=== PATIENT | female | born 1980 | race Caucasian/White ===

== ENCOUNTER 2022-05-15 21:41 | Emergency (ER) | payer OTHER, SELFPAY ==
[2022-05-15 21:42] VITALS: BP 212/115; PULSE 94; RESP 16; TEMP 36.6; O2SAT 100; BMI 42.5
--- NOTE | 2022-05-15 22:18 | US_ITS ---
EXAM: US ABDOMEN LIMITED, RIGHT UPPER QUADRANT CLINICAL INDICATION: ruq pain TECHNIQUE: Real-time ultrasound of the right upper quadrant with image documentation. This report was created using [email or web address] report [employer] technology. COMPARISON: None. FINDINGS: LIVER: Liver is normal in size measuring 23.3 cm. Echogenicity is increased consistent with fatty infiltration. No intrahepatic biliary ductal dilation. GALLBLADDER: Shadowing stone in the gallbladder fundus. District Agent reports a positive sonographic Cohn''s sign. Trace gallbladder sludge. No gallbladder wall thickening is demonstrated. COMMON BILE DUCT: Unremarkable as visualized. The proximal common bile duct is within normal limits for the patient''s age. PANCREAS: Demonstrated pancreas is unremarkable. The tail is not seen. RIGHT KIDNEY: Right kidney is normal in size and echogenicity measuring 13.1 x 4.8 x 4.8 cm. Renal cortical thickness is normal. 4.3 x 4.2 cm upper pole simple cyst. 2.1 x 1.6 cm lower pole cyst. No mass, stone, or hydronephrosis. US/Gallbladder IMPRESSION: 1. Cholelithiasis. Positive sonographic Cohn''s sign suspicious for acute cholecystitis. 2. Hepatic steatosis. 3. Right renal cysts. Follow-up is not indicated per ACR guidelines. Electronically Signed: Betsy Anderson MD at 23:43 EDT Reading Location ID and State: [id number] / Tel , Service support ,
--- NOTE | 2022-05-15 22:19 | ED.VIS.GI ---
HPI HPI - GI History of Present Illness Chief Complaint: Abd Pain Narrative Narrative: 42-year-old female presenting with right upper quadrant pain. She states its been having pain intermittently throughout the week. She states it does not really relate to food. She gets pain whether or not she eats. She was seen at urgent care yesterday and given Prilosec, Zofran, famotidine. Patient states this is not helping. Patient states she was told this is either an ulcer or gastritis by urgent care. Patient states that she had Ramen noodles at about 7 PM and about an hour later started having right upper quadrant pain. She has nausea without vomiting. She denies fever, chills. She had some diarrhea but no constipation. She denies urinary or vaginal complaints. PFSH PFSH Home Medications oxycodone-acetaminophen 5 mg-325 mg tablet (Percocet) 1 tab PO Q6H PRN pain 3 days #12 tabs 05/16/22 [Rx Last Taken Unknown] Allergy/AdvReac Type Severity Reaction Status Date / Time Penicillins [PCN] Allergy Anaphylaxis Verified 05/15/22 21:46 azithromycin AdvReac Other Verified 05/15/22 21:46 codeine AdvReac Other Verified 05/15/22 21:46 Social History Smoking Status: Current every day smoker tobacco type: cigarettes ROS ROS ED Constitutional Constitutional ED: Denies chills or fever(s) ENT ENT ED: Denies rhinorrhea Cardiovascular Cardiovascular: Denies chest pain or palpitations Respiratory/Chest Respiratory/Chest: Denies cough or dyspnea Gastrointestinal Gastrointestinal: Reports abdominal pain, diarrhea and nausea Genitourinary Genitourinary ED: Denies dysuria or hematuria Musculoskeletal Musculoskeletal: Denies arthralgias Integumentary Denies abscess or Abrasions Neurologic Neurologic: Denies headache(s) or paresthesias Psychiatric Psychiatric: Denies anxiety or depression Endocrine Endocrinology: Denies polydipsia or polyphagia EXAM Physical Exam Const Vital Signs: 05/15/22 21:42 05/16/22 00:09 05/16/22 00:13 Temperature 97.8 F Temperature Source Temporal Pulse Rate 94 Respiratory Rate 16 Blood Pressure 212/115 H 169/102 H 164/97 H Blood Pressure Mean 147 124 119 Pulse Ox 100 Oxygen Delivery Method Room Air 05/16/22 00:16 Temperature Temperature Source Pulse Rate 82 Respiratory Rate 24 H Blood Pressure 171/94 H Blood Pressure Mean 119 Pulse Ox 97 Oxygen Delivery Method Room Air Positive well nourished General Appearance ED: NAD; Negative for pallor HEENT Reports moist mucous membranes normocephalic Eyes PERRL and EOMs intact bilaterally Resp normal respiratory effort and clear to auscultation bilaterally Auscultation: Negative for rales, rhonchi or wheezes Cardio regular rate and regular rhythm GI Palpation: tender RLQ and Cohn's sign Back/Spine no CVA tenderness Extremity full ROM General Extremety ED: Negative for edema or tenderness General Extremity: Negative for edema Neuro CN's II-XII intact bilaterally, moves all extremities and no sensory deficits noted Sensorium / Orientation: alert and oriented to person Psych mental status grossly normal Skin no wounds General Skin Exam: Negative for jaundice or pallor MDM MDM MDM Narrative Medical decision making narrative: Patient with right upper quadrant pain on exam. She states she ate Ramen noodles before the onset of the pain. Patient does have a gallbladder. IV was established and she was given morphine and Zofran for pain and nausea respectively. Blood work will be obtained as well as right upper quadrant ultrasound. Patient reevaluated at 1051. Labs have been drawn and she was medicated with morphine and Zofran. She feels improved but still has some pain. After her ultrasound she came back and stated that her abdomen was really hurting her. At this point she was given 0.5 mg of Dilaudid. Her blood work today shows a white blood cell count of 8.3, hemoglobin 12.7, hematocrit 39.3, platelets 287. There is no left shift. Creatinine 1.22 with no comparison. GFR of 51 again with no comparison. LFTs are all within normal limits. Serum is negative. Lipase is normal. Patient's gallbladder ultrasound is read as cholelithiasis with concern for acute cholecystitis however there is no abnormal wall thickening or dilatation of any ducts or pericholecystic fluid which would be suggestion of inflammation. I suspect this is likely a symptomatic gallstone. Dr. Peterson was called about this and he will come see the patient at the bedside. He did note that her blood pressure was elevated on arrival. She states she has not had elevated blood pressure in the past. Initial blood pressure 212/115. Repeat blood pressure 169/102. I will trend this. Repeat blood pressure 171/94. Dr. Peterson came to the bedside to evaluate patient and she feels she is tolerable to go home. I do not believe this is acute cholecystitis and neither is Dr. Peterson. She was given referral for follow-up with Dr. Herzog for her high blood pressure. She is to keep a blood pressure diary. She does report that she is never had high blood pressure before. She is given Percocet for home until she can make follow-up with Dr. Peterson on Tuesday. Return precautions discussed. Impression: 1. Cholelithiasis 2. Hypertension Lab Data Attestation: I reviewed the patient's lab results. Labs: Laboratory Results - last 24 hr 05/15/22 05/15/22 05/15/22 22:47 22:47 22:47 WBC 8.3 RBC 4.38 Hgb 12.7 Hct 39.3 MCV 89.7 MCH 29.0 MCHC 32.3 RDW Std Deviation 46.5 H RDW Coeff of Alex 14.3 Plt Count 287 MPV 10.7 Immature Gran % (Auto) 0.200 Neut % (Auto) 59.5 Lymph % (Auto) 22.0 [place] % (Auto) 10.4 H Eos % (Auto) 7.1 H Baso % (Auto) 0.8 Absolute Neuts (auto) 4.9 Absolute Lymphs (auto) 1.82 Nucleated RBC % 0 Differential Comment SCANNED Sodium 143 Potassium 3.9 Chloride 110 H Carbon Dioxide 25.0 Anion Gap 8 BUN 14 Creatinine 1.22 H Estim Creat Clear Calc 59.36 Est GFR (MDRD) Af Amer 62 Est GFR (MDRD) Non-Af 51 L BUN/Creatinine Ratio 11.5 Glucose 101 Calcium 8.9 Total Bilirubin 0.20 AST 17 ALT 28 Alkaline Phosphatase 73 Total Protein 7.1 Albumin 3.3 Globulin 3.8 Albumin/Globulin Ratio 0.9 Lipase 133 Serum , Qual NEGATIVE Radiography Diagnostic Testing: Clinical Impression(s) from Imaging Studies Gallbladder Ultrasound 05/15/22 22:18 IMPRESSION: 1. Cholelithiasis. Positive sonographic Cohn''s sign suspicious for acute cholecystitis. 2. Hepatic steatosis. 3. Right renal cysts. Follow-up is not indicated per ACR guidelines. Electronically Signed: Betsy Anderson MD at 23:43 EDT , Discharge Plan Triage Chief Complaint: Abd Pain ED Provider: Ray Degroot Dx/Rx/DC Orders Instructions: ED Abdominal Pain Gallstone Poss, ED Hypertension, To Be Confirmed Prescriptions: New oxycodone-acetaminophen [Percocet] 5-325 mg tablet 1 tab PO Q6H PRN (Reason: pain) 3 Days Qty: 12 0RF Primary Care Provider: Care Physician,No Primary Referrals: Cristopher Rosales DO [Non-Staff] - Freddie Peterson MD [Med Staff - Active Staff] - As soon as possible Robbie Herzog MD [Med Staff - Active Staff] - As soon as possible Disposition Disposition: Home, Self Care
[2022-05-15] MEDS: Ondansetron 4 MG/2 ML Vial IV (22:45)
[2022-05-15] MEDS: Morphine 4 MG/ML Syringe IV (22:45)
[2022-05-15 23:03] LABS: Absolute Lymphocyte Count 1.82 X10^3/uL (0.83-4.51); Absolute Neutrophil Count 4.9 X10^3/uL (2.0-7.7); Basophil# 0.07 X10^3/uL; Basophil% 0.8 % (0-1); Eosinophil# 0.59 X10^3/uL; Eosinophils% 7.1 % (0-5); Hematocrit 39.3 % (37-47); Hemoglobin 12.7 g/dL (12.0-15.0); Lymphocyte # 1.82 X10^3/ul (0.83-4.51); Mean Corp Hgb Conc 32.3 g/dL (32-36); Mean Corpuscular Volume 89.7 fL (81-99); Mean Platelet Vol. 10.7 fl (6.2-12.0); Monocyte# 0.86 X10^3/uL; Monocyte% 10.4 % (0-10); NRBC Flagged by Analyzer 0 % (0-5); Neutrophil % 59.5 % (47-70); POSITIVE MORPHOLOGY YES; Platelet Count 287 K/mm3 (150-450); RBC Distribution Width CV 14.3 % (11.6-14.6); RBC Distribution Width SD 46.5 fl (35.1-43.9); Red Blood Count 4.38 M/mm3 (4.2-5.4); White Blood Count 8.3 K/mm3 (4.4-11.0)
[2022-05-15 23:16] LABS: Internal QC Validated? YES +Cl - CLEAR BKGD; Pregnancy, Serum, hCG Quali. NEGATIVE Negative
[2022-05-15 23:24] LABS: ALB/GLOB Ratio 0.9 RATIO (0.9-2.4); AST(SGOT) 17 U/L (15-37); Alanine Aminotransfer ALT/SGPT 28 U/L (13-56); Albumin, Serum 3.3 g/dL (3.2-5.0); Alkaline Phosphatase 73 U/L (45-117); Anion Gap 8 (5-15); BUN 14 mg/dL (7-18); BUN/Creat Ratio 11.5 RATIO (10-20); Calcium,Total 8.9 mg/dL (8.5-10.1); Chloride 110 mmol/L (98-107); Creatinine, Serum 1.22 mg/dL (0.55-1.02); EST Glomerular Filtration Rate 51 mL/min (>60); Est Glom Filt Rate - Afr Amer 62 mL/min (>60); Estimated Creatinine Clearance 59.36 ml/min; Globulin 3.8 g/dL (2.2-4.2); Glucose 101 mg/dL (74-106); Lipase 133 U/L (73-393); Potassium 3.9 mmol/L (3.5-5.1); Protein, Total 7.1 g/dL (6.4-8.2); Sodium Level 143 mmol/L (136-145)
[2022-05-15 23:36] LABS: Differential Comment SCANNED; Differential Indicated SCAN CRITERIA MET
[2022-05-16] MEDS: HYDROmorphone 0.5 MG/0.5 ML SYRINGE IV (00:04)
[2022-05-16] MEDS: 0.9% Normal Saline 1,000 ML 999 ML IV (00:05)
[2022-05-16 00:09] VITALS: BP 169/102
[2022-05-16 00:13] VITALS: BP 164/97
[2022-05-16 00:16] VITALS: BP 171/94; PULSE 82; RESP 24; O2SAT 97
--- NOTE | 2022-05-16 01:17 | HP.PCM_ITS ---
HPI - General General Date of Service: 05/16/22 Chief Complaint: Abdominal pain HPI Narrative MERCY VIVAS, is a 42 F who presents to [facility] with complaints of abdominal pain that began 05/11/2022. This pain has remitted and recurred throughout the week. She states that 2 days ago the pain led her to present to an urgent care facility, however, the provider there was unable to distinguish whether this was an ulcer or the gallbladder and therefore prescribed a PPI medication that did not lead to any significant relief. Patient states that her current pain began at approximately 2100 last evening. She states that this followed a dinner with Ramkathya quick and rohinios. She admits that it has been very busy for her at work and she has not made the best dietary choices. Current pain is described as sharp and radiating to her back. She states that the pain medication given by the emergency room has allowed the pain to subside significantly, but she still feels it. Patient's ER work-up is notable for a CBC that shows normal white count and no left shift. Gallbladder ultrasound was remarkable for cholelithiasis and positive sonographic Cohn sign, but gallbladder wall and common bile duct were both within normal limits at 1.5 and 4.5 mm, respectively. Also no pericholecystic fluid was visualized. Patient denies any past medical history and is not currently taking any medication. She admits that she has not had recent following with a primary care provider as her 's insurance has changed several times over the last 1 year. Her only past surgical history is for tonsils and adenoids at the age of 4. PFS Home Medications oxycodone-acetaminophen 5 mg-325 mg tablet (Percocet) 1 tab PO Q6H PRN pain 3 days #12 tabs 05/16/22 [Rx Last Taken Unknown] Allergy/AdvReac Type Severity Reaction Status Date / Time Penicillins [PCN] Allergy Anaphylaxis Verified 05/15/22 21:46 azithromycin AdvReac Other Verified 05/15/22 21:46 codeine AdvReac Other Verified 05/15/22 21:46 Social History Smoking Status: Current every day smoker tobacco type: cigarettes ROS Constitutional Constitutional: Denies anorexia or fever(s) Gastrointestinal Gastrointestinal: Reports abdominal pain and nausea; Denies constipation Musculoskeletal Musculoskeletal: Reports back pain Vital Signs Vital Signs Vital Signs: 05/15/22 21:42 05/16/22 00:09 05/16/22 00:13 Temperature 97.8 F Temperature Source Temporal Pulse Rate 94 Respiratory Rate 16 Blood Pressure 212/115 H 169/102 H 164/97 H Blood Pressure Mean 147 124 119 Pulse Ox 100 Oxygen Delivery Method Room Air 05/16/22 00:16 Temperature Temperature Source Pulse Rate 82 Respiratory Rate 24 H Blood Pressure 171/94 H Blood Pressure Mean 119 Pulse Ox 97 Oxygen Delivery Method Room Air Weight Weight: 280 lb Body Mass Index (BMI) 42.5 Physical Exam Const alert, oriented x3 and well nourished General Appearance: cooperative Resp normal respiratory effort GI GI Narrative: Morbidly obese, nondistended, no scars. No visible herniations. Soft, tender to palpation in the right upper quadrant. Negative Cohn sign Results Lab / Micro Data Result Diagrams: 05/15/22 22:47 05/15/22 22:47 Labs: Laboratory Results - last 24 hr 05/15/22 22:47: WBC 8.3, RBC 4.38, Hgb 12.7, Hct 39.3, MCV 89.7, MCH 29.0, MCHC 32.3, RDW Std Deviation 46.5 H, RDW Coeff of Alex 14.3, Plt Count 287, MPV 10.7, Immature Gran % (Auto) 0.200, Neut % (Auto) 59.5, Lymph % (Auto) 22.0, [place] % (Auto) 10.4 H, Eos % (Auto) 7.1 H, Baso % (Auto) 0.8, Absolute Neuts (auto) 4.9, Absolute Lymphs (auto) 1.82, Nucleated RBC % 0, Differential Comment SCANNED 05/15/22 22:47: Sodium 143, Potassium 3.9, Chloride 110 H, Carbon Dioxide 25.0, Anion Gap 8, BUN 14, Creatinine 1.22 H, Estim Creat Clear Calc 59.36, Est GFR (MDRD) Af Amer 62, Est GFR (MDRD) Non-Af 51 L, BUN/Creatinine Ratio 11.5, Glucose 101, Calcium 8.9, Total Bilirubin 0.20, AST 17, ALT 28, Alkaline Phosphatase 73, Total Protein 7.1, Albumin 3.3, Globulin 3.8, Albumin/Globulin Ratio 0.9, Lipase 133 05/15/22 22:47: Serum , Qual NEGATIVE Radiology Impression Gallbladder Ultrasound 05/15/22 22:18 IMPRESSION: 1. Cholelithiasis. Positive sonographic Cohn''s sign suspicious for acute cholecystitis. 2. Hepatic steatosis. 3. Right renal cysts. Follow-up is not indicated per ACR guidelines. Electronically Signed: Betsy Anderson MD at 23:43 EDT Reading Location ID and State: [id number] / Tel , Service support , Assessment & Plan Assessment/Plan (1) Symptomatic cholelithiasis: PLAN: This is a 42-year-old female who presents with signs and symptoms of biliary colic and symptomatic cholelithiasis. Each account of her abdominal pain this past week she reports ingestion of fried/fatty meals. Her pain is classically described as beginning in the right upper quadrant and radiating to the back. Both CBC and CMP are within normal limits. I have shared with patient that her diagnosis does not warrant inpatient admission or emergent op eration, but would recommend considering cholecystectomy in the near future to minimize her risk for requiring further ER visits and missed work. She states that she was hopeful this could be done as soon as possible as she is planning on going on vacation in 1 week for 7 days to [facility]. She reports this is her first vacation all year as she has been very busy working as a banker. I have offered to her that we can plan for outpatient follow-up on Tuesday and hopefully will be able to schedule her for a procedure later this week. She is readily accepting of this offer. In the meantime I have suggested to her that she remain on a restricted/low-fat diet to prevent recurrences of her abdominal discomfort. I have also suggested that she establish following with a primary care provider given observations of systolic blood pressures ranging from the 170s to 200s millimeters mercury. Emergency medicine will provide an interval narcotic prescription for pain management and a recommendation for PCP. Charges/Coding Visit Charges Office Visits / Consults: 17915 ED Visit; Moderate Severity
[2022-05-16] MEDS: oxyCODONE 5 MG Tablet PO (01:24)
[2022-05-16 01:25] VITALS: BP 173/73
== END 2022-05-16 01:29 | disposition home or self-care (01) ==
PROVIDERS: Emergency Provider Student in an Organized Health Care Education/Training Program; Visit Provider Student in an Organized Health Care Education/Training Program
DX: K80.20 Calculus of gallbladder without cholecystitis without obstruction (principal); I10 Essential (primary) hypertension; F17.210 Nicotine dependence, cigarettes, uncomplicated
CPT/HCPCS: 76705; 80053; 83690; 84703; 85025; 96374; 96375; 99284; J7030; A4216; J2405

== ENCOUNTER 2022-05-17 12:02 | Day surgery (SDC) | payer OTHER, SELFPAY ==
[2022-05-17] VITALS (8 sets, daily range): BP systolic 125–151; BP diastolic 83–94; PULSE 86–96; RESP 14–16; TEMP 36.2–37.1; O2SAT 91–99; BMI 42.5
[2022-05-17 12:48] LABS: Internal QC Validated? YES +Cl - CLEAR BKGD; Pregnancy, Urine Negative Negative
[2022-05-17] MEDS: Lactated Ringers 1,000 ML 15 ML IV (13:38)
[2022-05-17] MEDS: Clindamycin 900 MG/50 ML BAG 75 MG IV (15:00)
--- NOTE | 2022-05-17 15:00 | GALL_PTH ---
PATIENT: MERCY VIVAS LOC: [facility] [place] U[place][id number] AGE/SX: 42/F ROOM: RE05/17/[address]: Dr. Freddie Peterson MD : 1980 BED: DIS: 05/17/2022 SPEC #: [id number] RECD: 05/18/22 11:52 STATUS: SHYAM MINOR #: [id number] FARRUKH: 05/17/22 15:[address]: Freddie Peterson DEPT: SURGICAL PATHOLOGY RECD BY: Karena Chambers ENTERED: 05/18/22 12:30 SP TYPE: ROSENDO VEGA DR: Dr. Robbie Herzog MD Tissues: Gallbladder, NOS Procedures: Surgery Specimen Level III HEADER OPERATION: Laparoscopic cholecystectomy with IOC PRE-OP DIAGNOSIS: Symptomatic cholelithiasis TISSUE SUBMITTED: Gallbladder MICROSCOPIC DIAGNOSIS Gallbladder, cholecystectomy: Chronic cholecystitis and cholelithiasis. See comment. BRITTANY:ruben 05/19/2022 COMMENT Inflammatory infiltrate shows marked increased number of eosinophils. MICROSCOPIC DESCRIPTION Slides are reviewed. GROSS DESCRIPTION Received is one container labeled with the patient's name and designated gallbladder. The specimen consists of a gallbladder measuring 8.5 cm in length and up to 2.5 cm in diameter. The external surface is pink-aguilar, smooth and glistening for the most part. Focally it is granular, hemorrhagic and contains cautery artifact. The gallbladder contains a small amount of turbid, yellow bile and two ovoid, greenish-brown stones measuring 1 and 2 cm in greatest dimension. One of the stones is impacted at the cystic duct. The mucosa is bile-stained and without any mass lesions. The gallbladder wall measures up to 0.5 cm in thickness. Rental Sales Representative sections from the gallbladder and the cystic duct are submitted in one cassette. / SJ:rg 05/18/2022 TC:3 CPT: 76780
--- NOTE | 2022-05-17 16:04 | RAD_ITS ---
STUDY: INTRAOPERATIVE CHOLANGIOGRAM. REASON FOR EXAM: Female, 42 years old. LAP MY FLUOROSCOPY TIME (if supplied): ( 6.3 seconds ) minutes/seconds. A cine loop of 59 images were submitted. TECHNIQUE: Intraoperative cholangiogram was performed by the surgeon. Imaging was submitted. COMPARISON: None. FINDINGS: The common bile duct is unremarkable. No intraluminal filling defect is seen. There is free flow of contrast into the duodenum. RAD/Cholangiogram/ O R,Initial IMPRESSION: Unremarkable intraoperative cholangiogram. Electronically Signed: Hayden Schwartz MD at 10:10 EDT ,
--- NOTE | 2022-05-17 17:12 | PCM.OPRPT ---
Report of Operation Date of Procedure: 05/17/22 Pre-Operative Diagnosis: Symptomatic cholelithiasis Post-Operative Diagnosis: Chronic cholecystitis Surgery/Procedure Performed:: Laparoscopic cholecystectomy with intraoperative cholangiogram Description of Surgical Findings:: ? Normal-appearing cystic duct with cystic artery (however there is an accessory cystic branch coming off of what appeared to be a posterior vessel directly penetrating the liver) ? Cholangiogram showing rapid filling of the duodenum without evidence of filling defect and retrograde filling of the common hepatic duct Surgeon: Freddie Peterson hospitalist nocturnist physician: Freddy Collins Type of Anesthesia: General/Supplemental Anesthesiologist: Ace Anderson Specimen's removed: Gallbladder Estimated Blood Loss (mL): 50 Description of Procedure: After proper identification in the preoperative holding area the patient was brought to the operating room where positioned supine on the operating room table. Preoperatively SCDs were placed and antibiotics were administered. General anesthesia was then induced. Patient's abdomen was prepped and draped in usual sterile fashion. A formal timeout was conducted to confirm both patient and the procedure. Procedure was begun with a stab incision (after instilling local anesthetic) over Phan's point. A Veress needle was inserted here and after performing a water drop test began trying to insufflate, however, there was increased resistance. On withdrawing the needle there was significant skin bleeding so pressure was applied at this site and I moved laterally with a second stab incision. Here again the needle was inserted until resistance was lost and a water drop test was passed. However, once again I attempted to establish pneumoperitoneum, but had high pressures on the insufflator. Therefore the needle was withdrawn and I converted to a Bates entry. A local block was performed and a supraumbilical incision was made and extended deeply down to the level of the fascia. The fascia was elevated and incised, as well as the peritoneum. A finger sweep was performed to ensure there were no underlying adhesions and a 12 mm balloon trocar was inserted. Pneumoperitoneum was established at 15 mmHg. 3 additional trocars were placed in the epigastrium (12 mm) and in the right upper quadrant (2 x 5 mm). Inspection of the peritoneum revealed no inadvertent injury to the viscera below. I performed a close inspection of the left upper quadrant and could visualize the puncture holes in the peritoneum from her Veress entry. Deeply there was no evidence of injury to the omentum. Taking a plumbline inferiorly from the peritoneal openings, I then explored the immediate vicinity and found the stomach to be fully located medially and uninjured. The spleen was located superior laterally and uninjured and the colon was located laterally and once again there is no evidence of injury. Having made this local exploration of the left upper quadrant, I turned to the area of focus in the right upper quadrant. The gallbladder was visualized with evidence of chronic inflammation in a whitened appearance. The gallbladder fundus was then grasped and elevated cephalad. This proved somewhat difficult given a very heavy/stiff liver. Then, using careful dissection the peritoneum was opened and the structures of the hepatocystic triangle were delineated. Once the critical view of safety was obtained, a clip was placed distally on the cystic duct and a ductotomy was made with partial transection of the cystic duct. Using an [place] clamp, a cholangiocatheter was fed into the proximal segment of the cystic duct and clamped into place. Under fluoroscopy a cholangiogram was then obtained showing a standard length cystic duct flowing into a common bile duct with rapid, unobstructed antegrade flow of contrast into the duodenum. There was also retrograde flow through the common hepatic duct into the right and left hepatic ducts. Satisfied with this result, the procedure was terminated and I moved to completion of the remainder of the case. The cholangiocatheter was withdrawn and the cystic duct was triply clipped and sharply divided. The same process was used for the cystic artery. The gallbladder was then removed from the gallbladder fossa with the use of electrocautery. However directly at the cystic plate there was a rather large vessel that appeared to follow the surface of the liver and ultimately give off several branches towards the gallbladder but penetrated the liver as well. These branches to the gallbladder were clipped proximally and divided with electrocautery. As the gallbladder was then lifted away from the gallbladder fossa an inadvertent rent in the gallbladder was made using electrocautery. This resulted in local spillage of bile that was immediately suctioned free of the peritoneum. I also noticed a small capsular tear in the liver to the lateral aspect of the gallbladder fossa. There was initially some bleeding in this location, but this clotted rather quickly. With inspection of the gallbladder fossa itself, I found the area to be hemostatic. The gallbladder was placed in an Endo Catch bag and removed from the peritoneum. Morison's pouch was irrigated and the effluent was suctioned free of the peritoneum. Hemostasis was again confirmed in the gallbladder fossa, but in an effort to mitigate the risk for rebleeding at the capsular rent laterally, I placed a small piece of Surgicel adjacent to this area and allow the liver to collapse down over it. The fascia of the supraumbilical and subxiphoid port sites was closed under direct laparoscopic vision using a Jose-Ann suture passer and a #1 PDS in a [id number] fashion. Pneumoperitoneum was evacuated and the fascial stitches were tied for the 12 mm ports. Additional local anesthetic was infiltrated directly into the fascia. A total of 30 mL of 0.25% bupivacaine plain local anesthetic was injected at the port sites for postoperative pain control. The skin of each port site was then closed in subcuticular fashion using 4-0 Monocryl. Steri-Strips and bandages were applied as dressings. Patient tolerated the procedure well without any apparent complications. On emergence from their anesthetic the patient was taken to PACU for ongoing recovery. Complications None Admit VTE Documentation VTE Mechan Device Prophylaxis: SCD's Procedures Digestive [id number]-49xxx: [id number] Laparo cholecystectomy/graph
--- NOTE | 2022-05-17 17:21 | DCINST_ITS ---
Discharge Instructions Diet Discharge Diet: Low fat / Low cholesterol Activity Discharge Activity: May Not Drive (No driving while using narcotic pain medication) and May Shower (Postoperative day 1) May shower in (days): 1 Ice area for (Minutes): 20 Lifting Restrictions: No lifting greater than 15 pounds for 2 weeks after surgery Additional Activity Instructions:: If traveling for longer than an hour, please be sure to break regularly and mobilize Dressing / Incision Call your doctor if your incision/area has: Continuous Slow Oozing, Increased Pain/ Swelling, Increased Redness, Foul Smelling Discharge and Swelling at the incision site Call your doctor if you observe: Fever of 101 or Higher Remove Dressing in: 1 day (Please leave Steri-Strips intact until they fall off spontaneously or are taken off at your follow-up visit) Cleanse incision/area with: Soap & Water Additional Dressing/Incision Instructions:: Please leave Steri-Strips intact until they fall off spontaneously or are taken off at your follow-up visit Follow Up Care Please Follow Up With: Freddie Peterson MD When: 7-10days postop Test Results: Test results from this visit will be discussed in further detail at your follow- up appointment, if applicable. Discharge Plan Admission Primary Reason for Your Visit: Gallbladder surgery Attending Provider: Freddie Peterson Primary Care Provider: Robbie Hrezog Discharge Orders/Prescriptions Prescriptions: No Action oxycodone-acetaminophen [Percocet] 5-325 mg tablet 1 tab PO Q6H PRN (Reason: pain) 3 Days Qty: 12 0RF Referrals / Follow Up: Robbie Herzog MD [Primary Care Provider] - Disposition Disposition (needs filled in before D/C Order can be placed): Home, Self Care
== END 2022-05-17 19:00 | disposition home or self-care (01) ==
LOC: SDC 12:05 → AC 12:06
PROVIDERS: Anesthesiology; PCP Family Medicine; Referring Provider Surgery; Visit Provider Surgery
PROC: (CPT 47610; principal; 2022-05-17 14:40)
DX: K80.10 Calculus of gallbladder with chronic cholecystitis without obstruction (principal); F17.210 Nicotine dependence, cigarettes, uncomplicated
CPT/HCPCS: 47563; 00790; 74300; 76000; 81025; 88304; J7120; J2405

== ENCOUNTER → 2022-10-27 | Outpatient (CLI) | payer OTHER, SELFPAY ==
[2022-10-27 15:45] LABS: Anion Gap 5 (5-15); BUN 13 mg/dL (7-18); BUN/Creat Ratio 13.9 RATIO (10-20); Calcium,Total 9.5 mg/dL (8.5-10.1); Chloride 108 mmol/L (98-107); Cholesterol 174 mg/dL (200); Creatinine, Serum 0.94 mg/dL (0.55-1.02); EST Glomerular Filtration Rate 69 mL/min (>60); Est Glom Filt Rate - Afr Amer 83 mL/min (>60); Glucose 91 mg/dL (74-106); High Density Lipoprotein 42 mg/dL; Potassium 4.6 mmol/L (3.5-5.1); Sodium Level 138 mmol/L (136-145); Triglycerides 119 mg/dL; Very Low Density Lipoprotein 24 mg/dL (5-40)
== END | disposition home or self-care (01) ==
LOC: MFPLAB 11:30
PROVIDERS: PCP Family Medicine; Referring Provider Family Medicine; Visit Provider Family Medicine
DX: I10 Essential (primary) hypertension (principal)
CPT/HCPCS: 36415; 80048; 80061

== ENCOUNTER → 2023-07-27 | Outpatient (CLI) | payer OTHER, SELFPAY ==
[2023-07-27 13:12] LABS: Anion Gap 6 (5-15); BUN 10 mg/dL (7-18); BUN/Creat Ratio 8.4 RATIO (10-20); Calcium,Total 9.3 mg/dL (8.5-10.1); Chloride 106 mmol/L (98-107); Cholesterol 159 mg/dL (200); Creatinine, Serum 1.19 mg/dL (0.55-1.02); EST Glomerular Filtration Rate 52 mL/min (>60); Est Glom Filt Rate - Afr Amer 63 mL/min (>60); Glucose 89 mg/dL (74-106); High Density Lipoprotein 45 mg/dL; Potassium 4.3 mmol/L (3.5-5.1); Sodium Level 136 mmol/L (136-145); Triglycerides 111 mg/dL; Very Low Density Lipoprotein 22 mg/dL (5-40)
== END | disposition home or self-care (01) ==
LOC: MFPLAB 10:16
PROVIDERS: PCP Family Medicine; Visit Provider Family Medicine
DX: I10 Essential (primary) hypertension (principal)
CPT/HCPCS: 36415; 80048; 80061

== ENCOUNTER → 2024-01-25 | Outpatient (CLI) | payer OTHER, SELFPAY ==
[2024-01-25 18:32] LABS: Anion Gap 7 (5-15); BUN 10 mg/dL (7-18); BUN/Creat Ratio 8.8 RATIO (10-20); Calcium,Total 9.3 mg/dL (8.5-10.1); Chloride 107 mmol/L (98-107); Creatinine, Serum 1.14 mg/dL (0.55-1.02); EST Glomerular Filtration Rate 55 mL/min (>60); Est Glom Filt Rate - Afr Amer 66 mL/min (>60); Glucose 97 mg/dL (74-106); Sodium Level 138 mmol/L (136-145); Thyroid Stim Hormone (TSH) 4.17 uIU/mL (0.358-3.74)
== END | disposition home or self-care (01) ==
LOC: MFPLAB 13:49
PROVIDERS: PCP Family Medicine; Visit Provider Family Medicine
DX: I10 Essential (primary) hypertension (principal); E66.9 Obesity, unspecified
CPT/HCPCS: 36415; 80048; 84443

== ENCOUNTER → 2024-09-20 | Outpatient (CLI) | payer OTHER, SELFPAY ==
[2024-09-20 11:22] LABS: Anion Gap 5 (5-15); BUN 12 mg/dL (7-18); BUN/Creat Ratio 11.4 RATIO (10-20); Calcium,Total 9.3 mg/dL (8.5-10.1); Chloride 109 mmol/L (98-107); Cholesterol 139 mg/dL (200); Creatinine, Serum 1.05 mg/dL (0.55-1.02); EST Glomerular Filtration Rate 60 mL/min (>60); Est Glom Filt Rate - Afr Amer 72 mL/min (>60); Glucose 98 mg/dL (74-106); High Density Lipoprotein 47 mg/dL; Potassium 4.1 mmol/L (3.5-5.1); Sodium Level 138 mmol/L (136-145); Triglycerides 73 mg/dL; Very Low Density Lipoprotein 15 mg/dL (5-40)
== END | disposition home or self-care (01) ==
LOC: MFPLAB 08:43
PROVIDERS: PCP Family Medicine; Visit Provider Family Medicine
DX: I10 Essential (primary) hypertension (principal); E66.9 Obesity, unspecified
CPT/HCPCS: 36415; 80048; 80061; 84443

== ENCOUNTER → 2025-01-16 | Outpatient (CLI) | payer OTHER, SELFPAY ==
[2025-01-16 11:31] LABS: Anion Gap 11 (5-15); BUN 10 mg/dL (4-19); BUN/Creat Ratio 9.7 RATIO (10-20); Calcium,Total 9.4 mg/dL (7.6-11.0); Carbon Dioxide 22.4 mmol/L (21.0-32.0); Chloride 106 mmol/L (98-108); Creatinine, Serum 1.07 mg/dL (0.70-1.20); EST Glomerular Filtration Rate 64 (>60); Glucose 96 mg/dL (70-99); Potassium 4.4 mmol/L (3.3-5.1); Sodium Level 139 mmol/L (133-145)
== END | disposition home or self-care (01) ==
LOC: MFPLAB 08:49
PROVIDERS: PCP Family Medicine; Referring Provider Family Medicine; Visit Provider Family Medicine
DX: E66.9 Obesity, unspecified (principal)
CPT/HCPCS: 36415; 80048

== ENCOUNTER → 2025-07-17 | Outpatient (CLI) | payer OTHER, SELFPAY ==
--- OUTSIDE RECORDS SUMMARY | 2025-07-17 09:05 | XMS RPT_ITS | CCD ---
Author Organization [facility] Care Team Providers Care Airset Molder Name Role Phone Mino LLANOS, Dr. Avalos Primary Care Provider Mino LLANOS, Dr. Avalos Attending Provider Mino LLANOS, Dr. Avalos Referring Provider Robbie Herzog Attending Unavailable Mino, Robbie Primary Care Unavailable Mino, Robbie Primary Care Unavailable Robbie Herzog Attending Unavailable Mino, Robbie Primary Care Unavailable Robbie Herzog Referring Unavailable Mino, Robbie Attending Unavailable Allergies Allergy Classification Reported Allergen(s) Allergy Type Date of Onset Reaction(s) Facility (3 sources) Azithromycin Drug Allergy 2 Other [facility] (3 sources) Codeine Drug Allergy 2 Other [facility] (3 sources) Penicillins Allergy to substance 2 Anaphylaxis [facility] (1 source) Azithromycin Drug Allergy 2 [facility] Repository (1 source) Codeine Drug Allergy 2 [facility] Rep[facility] (1 source) Penicillins Drug allergy (disorder) 2 [facility] Repository Medications Completed/Discontinued Medications Medication Drug Class(es) Dates Sig (Normalized) Sig (Original) acetaminophen 325 mg / oxyCODONE hydrochloride 5 mg oral tablet (3 sources) Opioid Agonist Start: 05-16-2022 End: 05-31-2022 Oxycodone-Acetamino phen (Percocet) 5-325 mg tablet Discontinued 1 {tbl} PO EVERY 6 HOURS as needed for pain 07 24May 16, 2022 May 31, 2022 9:08am Problems Problem Classification Problem Date Documented Date Episodic/Chronic Biliary tract disease (7 sources) Biliary calculus; Translations: [Calculus of gallbladder without cholecystitis without obstruction] Episodic Comment on above: This is a 42-year-ol d female who presents for ER follow-up after a visit when she presented late on the evening of 05/15/2022 into 05/16/2022. She was diagnosed with symptomatic cholelithiasis at that time and was prescribed a low-fat diet with plans to then establish outpatient follow-up. Patient states that she has largely been stable with some colicky persistent right upper quadrant discomfort and associated nausea but no vomiting. Given the severity of her symptoms over the weekend, I have recommended we proceed with laparoscopic cholecystectomy. Patient is eager to have this undertaken as soon as possible. Our first available opening with the operating room is later today and patient has remained appropriately n.p.o. Patient has been repeatedly cautioned about traveling too soon after a surgical procedure as her risk for blood clots is elevated. I have informed her my official recommendation would be to wait to travel least 2 weeks after surgery, however, she is adamant that she will travel this weekend and wants to try to mitigate her risk with regular mobilization. I have encouraged her to do this least once an hour. Essential hypertension (1 source) Essential (primary) hypertension; Translations: [Essential (primary) hypertension] Onset: 10-09-2024 Chronic Other nutritional; endocrine; and metabolic disorders (1 source) Obesity, unspecified; Translations: [Obesity, unspecified] Onset: 01-21-2025 Chronic Results Test Name Value Interpretation Reference Range Facility Anion gap in Serum or Plasma Ordered By: Robbie Herzog on 01-16-2025 Anion gap [Moles/Vol] 11 mmol/L 5-[address] [facility] BUN/creatinine ratioOrdered By: Robbie Herzog on 01-16-2025 Urea nitrogen/Creatinine [Mass ratio] 9.7 mg/mg Low 10-20 [facility] Basic Metabolic Profile (BMP )on 01-16-2025 BUN/CRE 9.7 RATIO Low - [facility] Comment on above: Performed By: #### L 500.2500 #### [facility] [address] [place], [address] Calcium [Mass/Vol] 9.4 mg/dL Normal 7.6-11.0 [facility] Comment on above: Performed By: #### L 500.2500 #### [facility] [address] [place], [address] Chloride [Moles/Vol] 106 mmol/L Normal 98-108 [facility] Comment on above: Performed By: #### L 500.2500 #### [facility] [address] [place], [address] CO2 [Moles/Vol] 22.4 mmol/L Normal 21.0-32.0 [facility] Comment on above: Performed By: #### L 500.2500 #### [facility] [address] [place], [address] Creatinine [Mass/Vol] 1.07 mg/dL Normal 0.70-1.[address] [facility] Comment on above: Performed By: #### L 500.2500 #### [facility] [address] [place], [address] GAP 11 Normal 5-15 [facility] Comment on above: Performed By: #### L 500.2500 #### [facility] [address] [place], [address] GFR/1.73 sq M.predicted among non-blacks MDRD (S/P/Bld) [Vol rate/Area] 64 mL/min/{1.73_m2} Normal >60 [facility] Comment on above: Result Comment: mL/m in/1.73m2 CKD-EPI Creatinine Equation (2020) Performed By: #### L 500.2500 #### [facility] [address] [place], [address] Glucose [Mass/Vol] 96 mg/dL Normal 70-99 [facility] Comment on above: Performed By: #### L 500.2500 #### [facility] [address] [place], [address] Potassium [Moles/Vol] 4.4 mmol/L Normal 3.3-5.[address] [facility] Comment on above: Performed By: #### L [id number] #### [facility] [address] [place], [place], [id number] Sodium [Moles/Vol] 139 mmol/L Normal 133-145 [facility] Comment on above: Performed By: #### L [id number] #### [facility] [address] [place], [place], [id number] Urea nitrogen [Mass/Vol] 10 mg/dL Normal 4-19 [facility] Comment on above: Performed By: #### L 500.2500 #### [facility] [address] [place], [place], [id number] Carbon dioxide, total [Moles /volume] in Central venous bloodOrdered By: Robbie Herzog on 01-16-2025 CO2 [Moles/Vol] 22.4 mmol/L 21.0-32.0 [facility] Chloride assayOrdered By: Jacob Herzog on 01-16-2025 Chloride [Moles/Vol] 106 mmol/L 98-108 [facility] Glomerular filtration rate ( GFR) estimation/1.73 sq m using serum, plasma, or whole bOrdered By: Robbie Herzog on 01-16-2025 GFR/1.73 sq M.predicted among non-blacks MDRD (S/P/Bld) [Vol rate/Area] 64 mL/min/{1.73_m2} >60 [facility] Comment on above: mL/min/1.73m2 CKD-EP I Creatinine Equation (2020) Potassium measurement (mass/ volume)Ordered By: Robbie Herzog on 01-16-2025 Potassium (Unsp spec) [Mass/Vol] 4.4 mmol/L 3.3-5.1 [facility] Serum creatinine measurement (mass/volume)Ordered By: Robbie Herzog on 01-16-2025 Creatinine [Mass/Vol] 1.07 mg/dL 0.70-1.[address] [facility] Serum glucose measurement (m ass/volume)Ordered By: Robbie Herzog on 01-16-2025 Glucose [Mass/Vol] 96 mg/dL 70-99 [facility] Serum or plasma calcium dean urement (mass/volume)Ordered By: Robbie Herzog on 01-16-2025 Calcium [Mass/Vol] 9.4 mg/dL 7.6-11.0 [facility] Serum or plasma urea nitroge n measurement (mass/volume)Ordered By: Robbie Herzog on 01-16-2025 Urea nitrogen [Mass/Vol] 10 mg/dL 4-19 [facility] Sodium levelOrdered By: Robbie Herzog on 01-16-2025 Sodium [Moles/Vol] 139 mmol/L 133-145 [facility] Basic Metabolic Profile (BMP )on 09-20-2024 BUN/CRE 11.4 RATIO Normal 10-20 [facility] Comment on above: Performed By: #### L 501.9520, L500.2500, L500.4100 #### [facility] [address] [place], [address] CA,Total 9.3 mg/dL Normal 8.5-10.1 [facility] Comment on above: Performed By: #### L 501.9520, L500.2500, L500.4100 #### [facility] [address] [place], [address] Chloride [Moles/Vol] 109 mmol/L High 98-107 [facility] Comment on above: Performed By: #### L 501.9520, L500.2500, L500.4100 #### [facility] [address] [place], [address] CO2 [Moles/Vol] 24.0 mmol/L Normal 21.0-32.0 [facility] Comment on above: Performed By: #### L 501.9520, L500.2500, L500.4100 #### [facility] [address] [place], [address] Creatinine [Mass/Vol] 1.05 mg/dL High 0.55-1.[address] [facility] Comment on above: Result Comment: The validity of the calculated GFR GFRAA in patients over 70 years has not been determined. Clinical correlation is essential. Performed By: #### L 501.9520, L500.2500, L500.4100 #### [facility] [address] [place], [address] EST GFR - AA 72 mL/min Normal >60 [facility] Comment on above: Result Comment: Afri can Trinidadian GFR Calc Performed By: #### L 501.9520, L500.2500, L500.4100 #### [facility] [address] [place], [address] GAP 5 Normal 5-15 [facility] Comment on above: Performed By: #### L 501.9520, L500.2500, L500.4100 #### [facility] [address] [place], [address] GFR/1.73 sq M.predicted among non-blacks MDRD (S/P/Bld) [Vol rate/Area] 60 mL/min/{1.73_m2} Normal >60 [facility] Comment on above: Result Comment: Non- GFR Calc Performed By: #### L 501.9520, L500.2500, L500.4100 #### [facility] [address] [place], [address] Glucose [Mass/Vol] 98 mg/dL Normal 74-106 [facility] Comment on above: Performed By: #### L 501.9520, L500.2500, L500.4100 #### [facility] [address] [place], [address] Potassium [Moles/Vol] 4.1 mmol/L Normal 3.5-5.[address] [facility] Comment on above: Performed By: #### L 501.9520, L500.2500, L500.4100 #### [facility] [address] [place], [address] Sodium [Moles/Vol] 138 mmol/L Normal 136-145 [facility] Comment on above: Performed By: #### L 501.9520, L500.2500, L500.4100 #### [facility] [address] [place], [address] Urea nitrogen [Mass/Vol] 12 mg/dL Normal 7-18 [facility] Comment on above: Performed By: #### L 501.9520, L500.2500, L500.4100 #### [facility] [address] [place], [address] Lipid Profileon 09-20-2024 Cholesterol [Mass/Vol] 139 mg/dL Normal 200 [facility] Comment on above: Result Comment: <200 mg/dL Desirable 200-240 mg/dL Borderline >240 mg/dL High Risk Performed By: #### L 501.9520, L500.2500, L500.4100 #### [facility] [address] [place], [address] Cholesterol in HDL [Mass/Vol] 47 mg/dL Normal [facility] Comment on above: Result Comment: The drugs N-Acetylcysteine and Metamizole may falsely depress this assay. Reference Range HDL <40 mg/dL Low HDL Cholesterol HDL >or= 60 mg/dL High HDL Cholesterol Performed By: #### L 501.9520, L500.2500, L500.4100 #### [facility] [address] [place], [address] Cholesterol in LDL [Mass/Vol] 77 mg/dL Normal 0-130 [facility] Comment on above: Performed By: #### L 501.9520, L500.2500, L500.4100 #### [facility] [address] [place], [address] Cholesterol in VLDL [Mass/Vol] 15 mg/dL Normal 5-40 [facility] Comment on above: Performed By: #### L 501.9520, L500.2500, L500.4100 #### [facility] [address] [place], [address] Triglyceride [Mass/Vol] 73 mg/dL Normal [facility] Comment on above: Result Comment: The drugs N-Acetylcysteine and Metamizole may falsely depress this assay. Serum Triglycerides Reference Interval Normal <150 mg/dL Borderline high 150 - 199 mg/dL High 200 - 499 mg/dL Very High > or = 500 mg/dL Performed By: #### L 501.9520, L500.2500, L500.4100 #### [facility] [address] [place], [address] Thyroid Stim Hormone (TSH)on 09-20-2024 TSH 3.280 uIU/mL Normal 0.358-3.740 [facility] Comment on above: Performed By: #### L 501.9520, L500.2500, L500.4100 #### [facility] [address] [place], [address] Basic Metabolic Profile (BMP )on 01-25-2024 BUN/CRE 8.8 RATIO Low 10-20 [facility] Comment on above: Performed By: #### L 500.2500, L501.9520 #### [facility] [address] [place], [address] CA,Total 9.3 mg/dL Normal 8.5-10.1 [facility] Comment on above: Performed By: #### L 500.2500, L501.9520 #### [facility] [address] [place], [address] Chloride [Moles/Vol] 107 mmol/L Normal 98-107 [facility] Comment on above: Performed By: #### L 500.2500, L501.9520 #### [facility] [address] [place], [address] CO2 [Moles/Vol] 24.0 mmol/L Normal 21.0-32.0 [facility] Comment on above: Performed By: #### L 500.2500, L501.9520 #### [facility] [address] [place], [address] Creatinine [Mass/Vol] 1.14 mg/dL High 0.55-1.[address] [facility] Comment on above: Result Comment: The validity of the calculated GFR GFRAA in patients over 70 years has not been determined. Clinical correlation is essential. Performed By: #### L 500.2500, L501.9520 #### [facility] [address] [place], [address] EST GFR - AA 66 mL/min Normal >60 [facility] Comment on above: Result Comment: Afri can Trinid[place] GFR Calc Performed By: #### L 500.2500, L5.9520 #### [facility] [address] [place], [address] GAP 7 Normal 5-15 [facility] Comment on above: Performed By: #### L 500.2500, L5.9520 #### [facility] [address] [place], [address] GFR/1.73 sq M.predicted among non-blacks MDRD (S/P/Bld) [Vol rate/Area] 55 mL/min/{1.73_m2} Low >60 [facility] Comment on above: Result Comment: Non- GFR Calc Performed By: #### L 500.2500, L5.20 #### [facility] [address] [place], [address] Glucose [Mass/Vol] 97 mg/dL Normal 74-106 [facility] Comment on above: Performed By: #### L 500.2500, L5.9520 #### [facility] [address] [place], [address] Potassium [Moles/Vol] 4.0 mmol/L Normal 3.5-5.[address] [facility] Comment on above: Performed By: #### L 500.2500, L5.20 #### [facility] [address] [place], [address] Sodium [Moles/Vol] 138 mmol/L Normal 136-145 [facility] Comment on above: Performed By: #### L 500.2500, L501.9520 #### [facility] [address] [place], [address] Urea nitrogen [Mass/Vol] 10 mg/dL Normal 7-18 [facility] Comment on above: Performed By: #### L 500.2500, L501.9520 #### [facility] [address] [place], [address] Thyroid Stim Hormone (TSH)on 01-25-2024 TSH 4.17 uIU/mL High 0.358-3.74 [facility] Comment on above: Performed By: #### L 500.2500, L501.9520 #### [facility] [address] [place], [address] Basophil percentageOrdered B y: Dr. Herzog on 10-27-2022 Chloride [Moles/Vol] 108 mmol/L 98-107 [facility] Cholesterol [Mass/Vol] 174 mg/dL <200 [facility] Comment on above: <200 mg/dL Desirable 200-240 mg/dL Borderline >240 mg/dL High Risk Glucose [Mass/Vol] 91 mg/dL 74-106 [facility] Potassium [Moles/Vol] 4.6 mmol/L 3.5-5.[address] [facility] Sodium [Moles/Vol] 138 mmol/L 136-145 [facility] Triglyceride [Mass/Vol] 119 mg/dL <199 [facility] Comment on above: The drugs N-Acetylcy steine and Metamizole may falsely depress this assay.Serum Triglycerides Reference Interval Normal <150 mg/dL Borderline high 150 - 199 mg/dL High 200 - 499 mg/dL Very High > or = 500 mg/dL Laboratory - Chemistry and C hemistry - challengeOrdered By: Dr. Herzog on 10-27-2022 CO2 [Moles/Vol] 25.0 mmol/L 21.0-32.0 [facility] Urea nitrogen/Creatinine [Mass ratio] 13.9 mg/mg 10-20 [facility] No Panel InformationOrdered By: Dr. Herzog on 10-27-2022 Estimated GFR (MDRD) Amer 83 mL/min >60 [facility] Comment on above: GFR Calc Estimated GFR (MDRD) Non-Af Amer 69 mL/min >60 [facility] Comment on above: Non- GFR Calc Serum or plasma calcium dean urement (mass/volume)Ordered By: Dr. Herzog on 10-27-2022 Calcium [Mass/Vol] 9.5 mg/dL 8.5-10.1 [facility] Serum or plasma cholesterol in HDL measurement (mass/volume)Ordered By: Dr. Herzog on 10-27-2022 Cholesterol in HDL [Mass/Vol] 42 mg/dL >40 [facility] Comment on above: The drugs N-Acetylcy steine and Metamizole may falsely depress this assay. Reference Range HDL <40 mg/dL Low HDL Cholesterol HDL >or= 60 mg/dL High HDL Cholesterol Serum or plasma cholesterol in VLDL measurement (mass/volume)Ordered By: Dr. Herzog on 10-27-2022 Cholesterol in VLDL [Mass/Vol] 24 mg/dL 5-40 [facility] Serum or plasma creatinine m easurement (mass/volume)Ordered By: Dr. Herzog on 10-27-2022 Creatinine [Mass/Vol] 0.94 mg/dL 0.55-1.[address] [facility] Comment on above: The validity of the calculated GFR & GFRAA in patients over 70 years has not been determined. Clinical correlation is essential. Serum or plasma low density lipoprotein (LDL) cholesterol measurement (mass/volume)Ordered By: Dr. Herzog on 10-27-2022 Cholesterol in LDL [Mass/Vol] 108 mg/dL 0-130 [facility] Serum or plasma urea nitroge n measurement (mass/volume)Ordered By: Dr. Herzog on 10-27-2022 Urea nitrogen [Mass/Vol] 13 mg/dL 7-18 [facility] Thin prep Papanicolaou smear with manual screeningOrdered By: Dr. Herzog on 10-27-2022 Thin prep Papanicolaou smear with manual screening 5 5-15 [facility] Absolute lymphocyte counton 05-15-2022 Lymphocytes Auto (Unsp spec) [#/Vol] 1.82 10*3/uL 0.83-4.51 [facility] Work Phone: Basophil percentageon 2021 Basophils/100 WBC (Bld) 0.8 % 0-1 [facility] Work Phone: Bilirubin [Mass/Vol] 0.20 mg/dL 0.20-1.00 [facility] Work Phone: Comment on above: For patients on eltr ombopag therapy, use of Dimension [place] TBIL is not recommended. Chloride [Moles/Vol] 110 mmol/L 98-107 [facility] Work Phone: Eosinophils/100 WBC (Bld) 7.1 % 0-5 [facility] Work Phone: Glucose [Mass/Vol] 101 mg/dL 74-106 [facility] Work Phone: Comment on above: Fasting Glucose resu lt from 100 to 125 mg/dL suggests IMPAIRED HOMEOSTASIS per A.D.A. criteria. Neutrophils (Bld) [#/Vol] 4.9 10*3/uL 2.0-7.7 [facility] Work Phone: Neutrophils/100 WBC (Bld) 59.5 % 47-70 [facility] Work Phone: Potassium [Moles/Vol] 3.9 mmol/L 3.5-5.[address] [facility] Work Phone: Protein [Mass/Vol] 7.1 g/dL 6.4-8.2 [facility] Work Phone: Sodium [Moles/Vol] 143 mmol/L 136-145 [facility] Work Phone: WBC (Bld) [#/Vol] 8.3 10*3/uL 4.4-11.0 [facility] Work Phone: Beta hCG serum qualon 2021 Beta HCG ( test) Ql Negative [facility] Work Phone: Blood erythrocytes count (nu mber/volume)on 05-15-2022 RBC (Bld) [#/Vol] 4.38 10*6/uL 4.2-5.4 [facility] Work Phone: Blood hemoglobin measurement (mass/volume)on 05-15-2022 Hemoglobin (Bld) [Mass/Vol] 12.7 g/dL 12.0-15.0 [facility] Work Phone: Blood lymphocytes/100 leukoc yteson 05-15-2022 Lymphocytes/100 WBC (Bld) 22.0 % 19-41 [facility] Work Phone: Blood manual differential co mment interpretation (narrative result)on 05-15-2022 Manual differential comment Raul (Bld) [Interp] SCANNED [facility] Work Phone: Blood monocytes/100 leukocyt eson 05-15-2022 Monocytes/100 WBC (Bld) 10.4 % 0-10 [facility] Work Phone: Blood platelet mean volumeon 05-15-2022 Platelet mean volume (Bld) [Entitic vol] 10.7 fL 6.2-12.0 [facility] Work Phone: Determination of erythrocyte mean corpuscular volume (MCV)on 05-15-2022 MCV (RBC) [Entitic vol] 89.7 fL 81-99 [facility] Work Phone: Hematocrit Auto (Bld) [Volum e fraction]on 05-15-2022 Hematocrit (Bld) [Volume fraction] 39.3 % 37-47 [facility] Work Phone: Laboratory - Chemistry and C hemistry - challengeon 05-15-2022 ALP [Catalytic activity/Vol] 73 U/L 45-117 [facility] Work Phone: ALT [Catalytic activity/Vol] 28 U/L 13-56 [facility] Work Phone: CO2 [Moles/Vol] 25.0 mmol/L 21.0-32.0 [facility] Work Phone: Globulin (S) [Mass/Vol] 3.8 g/dL 2.2-4.2 [facility] Work Phone: Lipase [Catalytic activity/Vol] 133 U/L 73-393 [facility] Work Phone: Urea nitrogen/Creatinine [Mass ratio] 11.5 mg/mg 10-20 [facility] Work Phone: Laboratory - Hematology and Cell countson 05-15-2022 Erythrocyte distribution width (RBC) [Entitic vol] 46.5 fL 35.1-43.9 [facility] Work Phone: Erythrocyte distribution width (RBC) [Ratio] 14.3 % 11.6-14.6 [facility] Work Phone: Immature granulocytes/100 WBC (Bld) 0.200 % 0.0-0.9 [facility] Work Phone: Comment on above: IG% - Immature Granu locytes (promyelocytes, myelocytes and metamyelocytes) > 1% indicates that a LEFT SHIFT is Present. MCH (RBC) [Entitic mass] 29.0 pg 27.0-32.0 [facility] Work Phone: Nucleated RBC/100 WBC (Bld) [Ratio] 0 % 0-5 [facility] Work Phone: MCHC Auto (RBC) [Mass/Vol]on 05-15-2022 MCHC (RBC) [Mass/Vol] 32.3 g/dL 32-[address] [facility] Work Phone: No Panel Informationon 05-15 Estimated Creatinine Clearance Calc 59.36 ml/min [facility] Work Phone: Estimated GFR (MDRD) Amer 62 mL/min >60 [facility] Work Phone: Comment on above: GFR Calc Estimated GFR (MDRD) Non-Af Amer 51 mL/min >60 [facility] Work Phone: Comment on above: Non- GFR Calc Platelets bldon 05-15-2022 Platelets (Bld) [#/Vol] 287 10*3/uL 150-450 [facility] Work Phone: Serum or plasma albumin dean urement (mass/volume)on 05-15-2022 Albumin [Mass/Vol] 3.3 g/dL 3.2-5.0 [facility] Work Phone: Serum or plasma albumin/glob ulin mass ratioon 05-15-2022 Albumin/Globulin [Mass ratio] 0.9 {ratio} 0.9-2.4 [facility] Work Phone: Serum or plasma calcium dean urement (mass/volume)on 05-15-2022 Calcium [Mass/Vol] 8.9 mg/dL 8.5-10.1 [facility] Work Phone: Serum or plasma creatinine m easurement (mass/volume)on 05-15-2022 Creatinine [Mass/Vol] 1.22 mg/dL 0.55-1.[address] [facility] Work Phone: Comment on above: The validity of the calculated GFR & GFRAA in patients over 70 years has not been determined. Clinical correlation is essential. Serum or plasma urea nitroge n measurement (mass/volume)on 05-15-2022 Urea nitrogen [Mass/Vol] 14 mg/dL 7-18 [facility] Work Phone: Thin prep Papanicolaou smear with manual screeningon 05-15-2022 Thin prep Papanicolaou smear with manual screening 17 U/L 15-37 [facility] Work Phone: Thin prep Papanicolaou smear with manual screening 8 5-15 [facility] Work Phone: OBSOLETEon 02-28-2019 OBSOLETE Refill ([facility]) ---- PATTI VIVAS ([id number]) 1980 F Date Time Provider Department 02/28/19 SHAHRZAD GRANT [facility] During your visit today, we recorded the following information about you: Allergies As of Date: 02/28/2019 Noted Allergy Reaction CODEINE 03/02/2007 1 - Mental Status Change Comments: Hallucinations DECONGEST II (PSEUDOEPHEDRINE- A*03/02/2007 5 - Intolerance Comments: Extreme fatigue/drowsiness per patient. ERYTHROMYCIN 08/09/2005 1 - Mental Status Change PENICILLIN G 08/09/2005 10 - Anaphylaxis Date Reviewed: 02/01/2019 Reviewed by: Mariola Floyd Medical File Clerk - Fully Assessed Reason for Visit: Refill Request [94] Visit Diagnosis:Bronchiti s [J40] Prescriptions as of 02/28/2019 Sig: SULFAMETHOXAZOLE 800 MG-TRIME* AYR SALINE 0.65 % NASAL SPRAY* 1 SPRAY INTO EACH NOSTRIL * MONTELUKAST 10 MG TABLET Take 1 tablet by mouth daily * ALBUTEROL SULFATE HFA 90 MCG/* Inhale 2 Puffs as instructed * LORATADINE 10 MG CAPSULE Take by mouth. Problem List As Of Date 02/28/2019 Noted Resolved Acute Serous Otitis Media of Both Ears [H65.03] INVALID FOR* Hearing Loss [H91.90] INVALID FOR* Allergic Disorder [T78.40XA] INVALID FOR* Encounter Status:Closed by SHAHRZAD GRANT APRN.CNP on 02/28/19 [facility] CNOVon 02-01-2019 CNOV Office Visit ([facility]) ---- PATTI VIVAS ([id number]) 1980 F Date Time Provider Department 02/01/19 4:45 PM SHAHRZAD GRANT [facility] During your visit today, we recorded the following information about you: Temperature Pulse Respiration Blood pressure 98.8 degrees 98/minute 20/minute 101/72 Weight 124.6 kg Shahrzad Grant APRN.WELDING MACHINE OPERATOR FRICTION 02/01/2019 6:00 PM Signed Subjective HPI Patti Vivas is a 39 year old female who presents with bronchitis, dizziness, and ear pain. She [facility] and given doxycycline, tessalon, Flonase, guaifenesin, albuterol inhaler etc. No improvement seen in symptoms. She suspects she has asthma, but says it has not been confirmed. Review of Systems Constitutional: Positive for malaise/fatigue. Negative for chills and fever. HENT: Positive for congestion, ear pain and sinus pain. Negative for sore throat. Eyes: Negative for blurred vision. Respiratory: Positive for cough, shortness of breath and wheezing. Negative for sputum production. Cardiovascular: Negative for chest pain and palpitations. Gastrointestinal: Negative for nausea and vomiting. Musculoskeletal: Negative for back pain and myalgias. Skin: Negative for itching and rash. Neurological: Positive for dizziness. Negative for weakness and headaches. BP 101/72 Pulse 98 Temp 37.1 ?C (98.8 ?F) (Tympanic) Resp 20 Wt 124.6 kg (274 lb 12.8 oz) SpO2 93% BMI 40.88 kg/m? PAST MEDICAL HISTORY Diagnosis Date - Other acne PAST SURGICAL HISTORY Procedure Laterality Date - REMOVE TONSILS/ADENOIDS,<1 2 Y/O 1984 ALLERGIES Codeine; Decongest Ii [Pseudoephedrine-Gu aifenesin]; Erythromycin; Penicillin G MEDICATIONS sulfamethoxazole-tr imethoprim (BACTRIM DS,SEPTRA DS) 800-160 mg per tablet AYR SALINE 0.65 % nasal spray 1 SPRAY INTO EACH NOSTRIL NEEDED FOR CONGESTION OR RHINITIS FOR UP TO 10 DAYS. albuterol HFA (VENTOLIN HFA) 90 mcg/actuation inhaler Inhale 2 Puffs as instructed every 4 hours as needed for Wheezing/Shortness of Breath. loratadine 10 mg cap Take by mouth. phenazopyridine (PYRIDIUM, GERIDIUM) 200 mg tablet Take 1 tablet by mouth three times daily as needed. predniSONE (DELTASONE) 10 mg tablet Take 4 tabs daily x 3 days, then 3 tabs x 3 days, 2 tabs x 3 days, then 1 tab x3 days with food. benzocaine (ORAGEL) 10 % gel Apply thin layer to oral lesion up to 4 times daily as needed. FAMILY HISTORY Problem Relation Age of Onset - Cancer Paternal Grandfather PROSTATE - Stroke Maternal Grandmother - Heart Sister - Diabetes Paternal Grandmother - Diabetes Paternal Aunt - Diabetes Paternal Uncle Social History Tobacco Use - Smoking status: Current Every Day Smoker Packs/day: 0.50 Types: Cigarettes Last attempt to quit: 02/12/2011 Years since quittin.9 - Smokeless tobacco: Never Used Substance Use Topics - Alcohol use: Yes Comment: SOCIALLY - Drug use: No Objective Physical Exam Constitutional: She is oriented to person, place, and time and well-developed, well-nourished, and in no distress. She does not have a sickly appearance. HENT: Head: Normocephalic and atraumatic. Right Ear: Tympanic membrane is erythematous and bulging. No middle ear effusion. Left Ear: Tympanic membrane is erythematous and bulging. No middle ear effusion. Nose: Mucosal edema and rhinorrhea present. Right sinus exhibits maxillary sinus tenderness. Right sinus exhibits no frontal sinus tenderness. Left sinus exhibits maxillary sinus tenderness. Left sinus exhibits no frontal sinus tenderness. Mouth/Throat: Mucous membranes are not pale, not dry and not cyanotic. No oropharyngeal exudate, posterior oropharyngeal edema or posterior oropharyngeal erythema. Eyes: Conjunctivae are normal. Cardiovascular: Normal rate, regular rhythm, normal heart sounds and intact distal pulses. Exam reveals no gallop and no friction rub. No murmur heard. Pulmonary/Chest: Effort normal. No respiratory distress. She has wheezes (generalized throughout). She has no rales. She exhibits no tenderness. Abdominal: Soft. Bowel sounds are normal. She exhibits no distension. Musculoskeletal: She exhibits no edema. Lymphadenopathy: She has no cervical adenopathy. Neurological: She is alert and oriented to person, place, and time. Gait normal. Skin: Skin is warm and dry. Psychiatric: Mood, memory, affect and judgment normal. ASSESSMENT/PLAN: 1. Bronchitis - ICD9: 490, ICD10: J40 (primary diagnosis) - ALBUTEROL SULFATE 2.5 MG/3 ML (0.083 %) SOLUTION FOR NEBULIZATION in office - MONTELUKAST 10 MG TABLET - PREDNISONE 20 MG TABLET 2. Bacterial sinusitis - ICD9: 473.9, 041.9, ICD10: J32.9, B96.89 - Supportive care with plenty of fluids, rest, and analgesia prn. - PREDNISONE 20 MG TABLET - DOXYCYCLINE MONOHYDRATE 100 MG CAPSULE Continue loratadine, albuterol, and tessalon. Instructed to make an appt with one of our family practice providers, but patient says she is unsure of insurance coverage and will call back tomorrow once she knows more. Will need asthmatic work up. I informed the patient to avoid all NSAID's while on steroid treatment, including: Aleve, Motrin, Advil, or ibuprofen or naproxen. May take Tylenol or acetaminophen as needed for pain relief. Patient understands if he/she develops any shortness of breath, chest pain, or persistent fever, they should be taken to the ER immediately or call 911. All of the above discussed with the patient in detail. Patient is in agreement with the above plan. Treatment and plan of care discussed including course of treatment, possible medication side effects, and what to watch for in regards to worsening signs and symptoms. All questions addressed. Shahrzad Grant APRN.WELDING MACHINE OPERATOR FRICTION Shahrzad Flores Ma 02/01/2019 5:58 PM Signed 2.5 solution aerosol treatment given per provider's orders. Prior to treatment O2 sat is 93. Treatment completed. Tolerated well. Referring Provider: SELF [200] Allergies As of Date: 02/01/2019 Noted Allergy Reaction CODEINE 03/02/2007 1 - Mental Status Change Comments: Hallucinations DECONGEST II (PSEUDOEPHEDRINE- A*03/02/2007 5 - Intolerance Comments: Extreme fatigue/drowsiness per patient. ERYTHROMYCIN 08/09/2005 1 - Mental Status Change PENICILLIN G 08/09/2005 10 - Anaphylaxis Date Reviewed: 02/01/2019 Reviewed by: Mariola Floyd Medical File Clerk - Fully Assessed Reason for Visit: Cough [28] Cmt: chest congestion,wheezing and SOB x 3 weeks Dizziness [36] Cmt: x 2 days Primary Visit Diagnosis:Bronchiti s [J40] Other Visit Diagnosis:Bacterial sinusitis [J32.9, B96.89] Order(s):[] albuterol 2.5 mg /3 mL (0.083 %) 2.5 mg (PROVENTIL)Disp: Rfl: montelukast (SINGULAIR) 10 mg tabletTake 1 tablet by mouth daily at bedtime.Disp: 30 tabletRfl: 0 predniSONE (DELTASONE) 20 mg tabletTake 2 tablets by mouth once daily for 10 days.Disp: 20 tabletRfl: 0 doxycycline monohydrate (MONODOX) 100 mg capsuleTake 1 capsule by mouth twice daily for 10 days.Disp: 20 capsuleRfl: 0 Prescriptions as of 02/01/2019 Sig: SULFAMETHOXAZOLE 800 MG-TRIME* AYR SALINE 0.65 % NASAL SPRAY* 1 SPRAY INTO EACH NOSTRIL * ALBUTEROL SULFATE HFA 90 MCG/* Inhale 2 Puffs as instructed * LORATADINE 10 MG CAPSULE Take by mouth. MONTELUKAST 10 MG TABLET Take 1 tablet by mouth daily * PREDNISONE 20 MG TABLET Take 2 tablets by mouth once * DOXYCYCLINE MONOHYDRATE 100 M* Take 1 capsule by mouth twice* Problem List As Of Date 02/01/2019 Noted Resolved Acute Serous Otitis Media of Both Ears [H65.03] INVALID FOR* Hearing Loss [H91.90] INVALID FOR* Allergic Disorder [T78.40XA] INVALID FOR* Visit Notes: >> Shahrzad Flores Ma Kayla Feb 01, 2019 5:57 PM Status: Signed 2.5 solution aerosol treatment given per provider's orders. Prior to treatment O2 sat is 93. Treatment completed. Tolerated well. Prescriptions ordered this encounter Disp Refills Start End ALBUTEROL SULFATE 2.5 MG/3 ML (0.083* 02/01/2019 02/01/2019 Route: INHALATION MONTELUKAST 10 MG TABLET 30 t* 0 02/01/2019 Route: ORAL Sig: Take 1 tablet by mouth daily at bedtime. PREDNISONE 20 MG TABLET 20 t* 0 02/01/2019 02/11/2019 Route: ORAL Sig: Take 2 tablets by mouth once daily for 10 days. DOXYCYCLINE MONOHYDRATE 100 MG CAPSU* 20 c* 0 02/01/2019 02/11/2019 Route: ORAL Sig: Take 1 capsule by mouth twice daily for 10 days. Medications Discontinued During This Encounter benzocaine (ORAGEL) 10 % gel 1 Tu* 0 10/28/2014 02/01/2019 Sig: Apply thin layer to oral lesion up to 4 times daily as needed. Disc: Course of therapy completed predniSONE (DELTASONE) 10 mg tablet 30 t* 0 03/03/2016 02/01/2019 Sig: Take 4 tabs daily x 3 days, then 3 tabs x 3 days, 2 tabs x 3 days, then 1 tab x3 days with food. Disc: Course of therapy completed phenazopyridine (PYRIDIUM, GERIDIUM)* 15 t* 0 07/19/2016 02/01/2019 Route: ORAL Sig: Take 1 tablet by mouth three times daily as needed. Patient not taking: Reported on 02/01/2019 Disc: Course of therapy completed doxycycline monohydrate (MONODOX) 10* 14 c* 0 03/03/2016 02/01/2019 Route: ORAL Sig: Take 1 capsule by mouth twice daily for 7 days. Disc: Reason for discontinue is not on file. Letter Text Encounter Status:Closed by JUANITA SHAH.SHAHRZAD BRUMFIELD on 02/01/19 [facility] PROGRESSon 02-01-2019 PROGRESS HNO ID: [id number] Author: Shahrzad Grant Service: ? Author Type: Nurse Practitioner Type: Progress Notes Filed: 02/01/2019 6:00 PM Note Text: Subjective HPI Patti Vivas is a 39 year old female who presents with bronchitis, dizziness, and ear pain. She has been seen by a [facility] 2 times and given doxycycline, tessalon, Flonase, guaifenesin, albuterol inhaler etc. No improvement seen in symptoms. She suspects she has asthma, but says it has not been confirmed. Review of Systems Constitutional: Positive for malaise/fatigue. Negative for chills and fever. HENT: Positive for congestion, ear pain and sinus pain. Negative for sore throat. Eyes: Negative for blurred vision. Respiratory: Positive for cough, shortness of breath and wheezing. Negative for sputum production. Cardiovascular: Negative for chest pain and palpitations. Gastrointestinal: Negative for nausea and vomiting. Musculoskeletal: Negative for back pain and myalgias. Skin: Negative for itching and rash. Neurological: Positive for dizziness. Negative for weakness and headaches. BP 101/72 Pulse 98 Temp 37.1 ?C (98.8 ?F) (Tympanic) Resp 20 Wt 124.6 kg (274 lb 12.8 oz) SpO2 93% BMI 40.88 kg/m? PAST MEDICAL HISTORY Diagnosis Date - Other acne PAST SURGICAL HISTORY Procedure Laterality Date - REMOVE TONSILS/ADENOIDS,<1 2 Y/O 1984 ALLERGIES Codeine; Decongest Ii [Pseudoephedrine-Gu aifenesin]; Erythromycin; Penicillin G MEDICATIONS sulfamethoxazole-tr imethoprim (BACTRIM DS,SEPTRA DS) 800-160 mg per tablet AYR SALINE 0.65 % nasal spray 1 SPRAY INTO EACH NOSTRIL NEEDED FOR CONGESTION OR RHINITIS FOR UP TO 10 DAYS. albuterol HFA (VENTOLIN HFA) 90 mcg/actuation inhaler Inhale 2 Puffs as instructed every 4 hours as needed for Wheezing/Shortness of Breath. loratadine 10 mg cap Take by mouth. phenazopyridine (PYRIDIUM, GERIDIUM) 200 mg tablet Take 1 tablet by mouth three times daily as needed. predniSONE (DELTASONE) 10 mg tablet Take 4 tabs daily x 3 days, then 3 tabs x 3 days, 2 tabs x 3 days, then 1 tab x3 days with food. benzocaine (ORAGEL) 10 % gel Apply thin layer to oral lesion up to 4 times daily as needed. FAMILY HISTORY Problem Relation Age of Onset - Cancer Paternal Grandfather PROSTATE - Stroke Maternal Grandmother - Heart Sister - Diabetes Paternal Grandmother - Diabetes Paternal Aunt - Diabetes Paternal Uncle Social History Tobacco Use - Smoking status: Current Every Day Smoker Packs/day: 0.50 Types: Cigarettes Last attempt to quit: 02/12/2011 Years since quittin.9 - Smokeless tobacco: Never Used Substance Use Topics - Alcohol use: Yes Comment: SOCIALLY - Drug use: No Objective Physical Exam Constitutional: She is oriented to person, place, and time and well-developed, well-nourished, and in no distress. She does not have a sickly appearance. HENT: Head: Normocephalic and atraumatic. Right Ear: Tympanic membrane is erythematous and bulging. No middle ear effusion. Left Ear: Tympanic membrane is erythematous and bulging. No middle ear effusion. Nose: Mucosal edema and rhinorrhea present. Right sinus exhibits maxillary sinus tenderness. Right sinus exhibits no frontal sinus tenderness. Left sinus exhibits maxillary sinus tenderness. Left sinus exhibits no frontal sinus tenderness. Mouth/Throat: Mucous membranes are not pale, not dry and not cyanotic. No oropharyngeal exudate, posterior oropharyngeal edema or posterior oropharyngeal erythema. Eyes: Conjunctivae are normal. Cardiovascular: Normal rate, regular rhythm, normal heart sounds and intact distal pulses. Exam reveals no gallop and no friction rub. No murmur heard. Pulmonary/Chest: Effort normal. No respiratory distress. She has wheezes (generalized throughout). She has no rales. She exhibits no tenderness. Abdominal: Soft. Bowel sounds are normal. She exhibits no distension. Musculoskeletal: She exhibits no edema. Lymphadenopathy: She has no cervical adenopathy. Neurological: She is alert and oriented to person, place, and time. Gait normal. Skin: Skin is warm and dry. Psychiatric: Mood, memory, affect and judgment normal. ASSESSMENT/PLAN: 1. Bronchitis - ICD9: 490, ICD10: J40 (primary diagnosis) - ALBUTEROL SULFATE 2.5 MG/3 ML (0.083 %) SOLUTION FOR NEBULIZATION in office - MONTELUKAST 10 MG TABLET - PREDNISONE 20 MG TABLET 2. Bacterial sinusitis - ICD9: 473.9, 041.9, ICD10: J32.9, B96.89 - Supportive care with plenty of fluids, rest, and analgesia prn. - PREDNISONE 20 MG TABLET - DOXYCYCLINE MONOHYDRATE 100 MG CAPSULE Continue loratadine, albuterol, and tessalon. Instructed to make an appt with one of our family practice providers, but patient says she is unsure of insurance coverage and will call back tomorrow once she knows more. Will need asthmatic work up. I informed the patient to avoid all NSAID's while on steroid treatment, including: Aleve, Motrin, Advil, or ibuprofen or naproxen. May take Tylenol or acetaminophen as needed for pain relief. Patient understands if he/she develops any shortness of breath, chest pain, or persistent fever, they should be taken to the ER immediately or call 911. All of the above discussed with the patient in detail. Patient is in agreement with the above plan. Treatment and plan of care discussed including course of treatment, possible medication side effects, and what to watch for in regards to worsening signs and symptoms. All questions addressed. Shahrzad Grant APRN.WELDING MACHINE OPERATOR FRICTION Normal [facility] Vital Signs Date Time Vital Sign Value Performing Clinician Christos michael 05-16-2022 01:25-0400 Diastolic blood pressure 73 mm[Hg] [facility] Work Phone: 05-16-2022 01:25-0400 Systolic blood pressure 173 mm[Hg] [facility] Work Phone: 05-16-2022 00:16-0400 Heart rate 82 /min [facility] Work Phone: 05-16-2022 00:16-0400 Respiratory rate 24 /min [facility] Work Phone: 05-16-2022 00:16-0400 SaO2% (BldA) [Mass fraction] 97 % [facility] Work Phone: 05-15-2022 21:42-0400 Body height 172.72 cm [facility] Work Phone: 05-15-2022 21:42-0400 Body mass index (BMI) [Ratio] 42.5 kg/m2 [facility] Work Phone: 05-15-2022 21:42-0400 Body temperature 97.8 [degF] [facility] Work Phone: 05-15-2022 21:42-0400 Body weight 127 kg [facility] Work Phone: Encounters Encounter Date Encounter Type Care Provider Facility Start: 01-16-2025 End: 01-16-[address] Robbie Herzog MD Work Phone: [facility] Work Phone: Start: 01-16-2025 End: 01-16-[address] Robbie Herzog MD -Laboratory [facility] Start: 01-16-2025 End: 01-16-2025 ambulatory Robbie Herzog Facility:[facility] Start: 09-20-2024 End: 09-20-2024 ambulatory Robbie Herzog Facility:[facility] Start: 01-25-2024 End: 01-25-2024 ambulatory Robbie Herzog Facility:[facility] Start: 10-27-2022 End: 10-27-2022 ambulatory [facility] Work Phone: Start: 10-27-2022 End: 10-27-2022 Patient encounter procedure [facility]enn[facility] Start: 05-15-2022 End: 05-16-2022 Emergency department patient visit [facility]Emergency Department Procedures Date Procedure Procedure Detail Performing Clinician Start: 05-15-2022 US scan of gallbladder History of cholecystectomy Statu s post cholecystectomy Comment on above: Patient recovering well following laparo scopic cholecystectomy with intraoperative cholangiogram 05/17/2022. She describes some mild abdominal wall discomfort that is progressively improving. She also reports some looser stools since her operation, but openly confesses that she has not had a restricted or even normal diet. She wishes to try to make some dietary adjustments and add some fiber before considering other management. I have asked her to keep me apprised of the situation as we may do well to prescribe some cholestyramine for postcholecystectomy diarrhea. Pathology was reviewed with Mrs. Vivas and was consistent with chronic cholecystitis. Given her postoperative progress, she is cleared to return to work this week. Plan of Treatment Date Care Activity Detail Author Patient Education ED Abdominal P ain Gallstone Poss ED Hypertension, To Be Confirmed [facility] Work Phone: Patient referral [facility] Work Phone: Payers Date Payer Category Payer Self-pay 2024 Unknown [id number] Private Health Insurance [employer] [id number] Unknown [id number] Unknown [id number] Unknown [id number] Social History Date Type Detail Facility Start: 05-15-2022 End: 05-17-2022 Tobacco smoking status LAIS Unknown if ever smoked [facility] Start: 1980 Sex Assigned At Female [facility] Start: 05-17-2022 Tobacco smoking status NHIS Smokes tobacco daily (finding) [facility] NEGATED: Highlighted row [facility] Work Phone: Medical Equipment Procedure Code Equipment Code Equipment Origin al Text Equipment Identifier Dates Total cholecystectomy with exploration of common bile duct Plant polysaccharide haemostatic agent, bioabsorbable ()[id number] FDA Start: 05-17-2022 Total cholecystectomy with exploration of common bile duct Open-surgery ligation clip insurance claims processor [id number] FDA Start: 05-17-2022 Evaluation note Note Date & Type Note Facility Evaluation note Diagnosis Onset Date Symptomatic cholelithiasis a cute [facility] Work Phone: Evaluation note Note Date & Type Note Facility Evaluation note No assessment information availa ble [facility] Work Phone: Reason for referral (narrative) Note Date & Type Note Facility Reason for referral (narrative) No reason for referral information available [facility] Work Phone: Summary Purpose Family History No Family History Records FoundNo Family History Records Found Advance Directives No Advanced Directives Records Found Advance Directive Response Recorded Date/ Time Living Will No May 15, 2022 10:01pm Power of Licensed Funeral Director No April 10:01pm Advance Directive Response Recorded Date/ Time Living Will No May 17, 2022 1:11pm Power of Licensed Funeral Director No April 1:11pm Chief Complaint and Reason for Visit Chief Complaint ABD PAIN Reason for Visit Symptomatic cholelit hiasis Additional Source Comments INFORMATION SOURCE (unrecogn ized section and content) DATE CREATED AUTHOR 02/28/2019 [facility] DATE CREATED AUTHOR AUTHOR'Diamond MARIE 01/22/2025 [facility] Goals (unrecognized section and content) Goals may be documented in a n alternate sectionGoals may be documented in an alternate sectionGoals may be documented in an alternate section Care Teams (unrecognized sec tion and content) Team Status: Active Member Role Status Dates Dr. Cristopher Rosales DO Family Provider Active Dr. Robbie Herzog MD Primary Care Provider Active Team Status: Inactive Member Role Status Dates Dr. Robbie Herzog MD Primary Care Provi damion, Attending Provider, Referring Provider Active Team Status: Inactive Member Role Status Dates Dr. Robbie Herzog MD Primary Care Provider Active Start: January 16, 2025 End: January 16, 2025 Dr. Robbie Herzog MD Attending Provider Active Start: January 16, 2025 End: January 16, 2025 Dr. Robbie Herzog MD Referring Provider Active Start: January 16, 2025 End: January 16, 2025 FOR RECORDS PERTAINING TO PATIENTS WHO ARE OR HAVE BEEN ENROLLED IN A CHEMICAL DEPENDENCY/SUBSTANCEABUSE PROGRAM, SOME INFORMATION MAY BE OMITTED. This clinical summary was aggregated from multiple sources. Caution should be exercised in using it in the provision of clinical care. This summary normalizes information from multiple sources, and as a consequence, information in this document may materially change the coding, format and clinical context of patient data. In addition, data may be omitted in some cases. CLINICAL DECISIONS SHOULD BE BASED ON THE PRIMARY CLINICAL RECORDS. [employer] provides no warranty or guarantee of the accuracy or completeness of information in this document.
[2025-07-17 10:18] LABS: Hematocrit 31.0 % (37-47); Hemoglobin 9.4 g/dL (12.0-15.0); Immature Granulocytes Count 0.010 X10^3/uL (0.0-0.0); Mean Corp Hgb Conc 30.3 g/dL (32-36); Mean Corpuscular Volume 80.7 fL (81-99); Mean Platelet Vol. 10.6 fl (6.2-12.0); NRBC Flagged by Analyzer 0 % (0-5); Platelet Count 327 K/mm3 (150-450); RBC Distribution Width CV 13.3 % (11.6-14.6); RBC Distribution Width SD 38.8 fl (35.1-43.9); Red Blood Count 3.84 M/mm3 (4.2-5.4); White Blood Count 5.2 K/mm3 (4.4-11.0)
[2025-07-17 13:07] LABS: Anion Gap 10 (5-15); BUN 10 mg/dL (4-19); BUN/Creat Ratio 9.8 RATIO (10-20); Calcium,Total 9.4 mg/dL (7.6-11.0); Carbon Dioxide 23.2 mmol/L (21.0-32.0); Chloride 104 mmol/L (98-108); Cholesterol 167 mg/dL (<=200); Glucose 91 mg/dL (70-99); Low Density Lipoprotein Calc. 101 mg/dL; Potassium 4.2 mmol/L (3.3-5.1); Triglycerides 115 mg/dL; Very Low Density Lipoprotein 23 mg/dL (5-40); cholesterol:hdl ratio screen 3.71
== END | disposition home or self-care (01) ==
LOC: MFPLAB 08:41
PROVIDERS: PCP Family Medicine; Visit Provider Family Medicine
DX: I10 Essential (primary) hypertension (principal); R53.83 Other fatigue
CPT/HCPCS: 36415; 80048; 80061; 84443; 85025